=== PATIENT | female | born 1950 | race Caucasian/White ===

== ENCOUNTER 2022-03-20 13:42 | Emergency (ER) | payer MEDICARE, OTHER ==
[~2022-03-20] VITALS: Ht 162.6 cm; Wt 129.3 kg
[2022-03-20] MEDS ORDERED: LISI40TA13 PO (14:04)
[2022-03-20] MEDS ORDERED: LEVO125T PO (14:04)
[2022-03-20] MEDS ORDERED: LACT1CAP61 PO (14:11)
[2022-03-20] MEDS ORDERED: LOTE5DRO3 EACHEYE (14:11)
[2022-03-20] MEDS ORDERED: ASCO100T12 PO ×2 (14:11)
[2022-03-20] MEDS ORDERED: ASPI-618 PO (14:11)
[2022-03-20] MEDS ORDERED: ESOM40CA PO (14:11)
[2022-03-20] MEDS ORDERED: VITA FUSION (14:11)
[2022-03-20] MEDS ORDERED: ROSU20TA2 PO (14:11)
[2022-03-20] MEDS ORDERED: BRIM5DRO2 EACHEYE (14:11)
[2022-03-20] MEDS ORDERED: REFRESH (14:11)
[2022-03-20] MEDS ORDERED: CYAN250014 PO (14:11)
[2022-03-20] MEDS ORDERED: [UNRECOGNIZED DRUG - CODE] PO (14:11)
[2022-03-20] MEDS ORDERED: CELE200C PO (14:11)
[2022-03-20] MEDS ORDERED: [UNRECOGNIZED DRUG - CODE] PO (14:11)
[2022-03-20] MEDS ORDERED: BIOT10004 PO (14:11)
--- NOTE | 2022-03-20 14:12 | NUR ---
PT IS IN ROOM #2B. DR LI EVALUATED THE PT.
[2022-03-20] MEDS ORDERED: IV NORMAL SALINE 1000 ML BAG IV ONE (14:45)
[2022-03-20 15:10] LABS: HEMATOCRIT 38.7 % (31.2-41.9); MEAN CORPUSCULAR HEMOGLOBIN 26.9 uug (24.7-32.8); MEAN CORPUSCULAR VOLUME 82.9 fL (75.5-95.3); PLATELET COUNT (AUTO) 298 K/uL (179-408)
[2022-03-20 15:29] LABS: *BILIRUBIN,URIN NEGATIVE (NEGATIVE); *CLARITY,URINE CLEAR (CLEAR); *COLOR,URINE LIGHT YELLOW (YELLOW); *KETONES,URINE TRACE (NEGATIVE); *UROBILINOGEN,URINE 0.2 E.U./dl (NORMAL); LEUKOCYTE ESTERASE ,URINE NEGATIVE (NEGATIVE); NITRITE, URINE NEGATIVE (NEGATIVE); PH,URINE 5.5 (5.0-8.0); UGLUCOSE NEGATIVE (NEGATIVE)
[2022-03-20 15:31] LABS: *BLOOD, URINE TRACE (NEGATIVE)
[2022-03-20 15:34] LABS: CARBON DIOXIDE 27 mmol/L (21-32); CHLORIDE 105 mmol/L (98-107); CREATININE 0.8 mg/dL (0.6-1.3); GLUCOSE 100 mg/dL (74-106); POTASSIUM 3.7 mmol/L (3.5-5.1); UREA NITROGEN, BLOOD 20 mg/dL (7-18)
[2022-03-20 15:44] LABS: RBC,URINE 0-3 /HPF (0-3); SQUAMOUS EPITHELIAL CELL,UR FEW /HPF (NONE SEEN); WBC,URINE 0-3 /HPF (0-3)
[2022-03-20 15:45] LABS: ALANINE AMINOTRANSFERASE 19 U/L (14-59); ALKALINE PHOSPHATASE 89 U/L (50-136); ASPARTATE AMINOTRANSFERASE 22 U/L (15-37); BACTERIA,URINE NONE SEEN /HPF (NONE SEEN); BILIRUBIN,DIRECT 0.1 mg/dL (0.0-0.2); BILIRUBIN,TOTAL 0.5 mg/dL (0.2-1.0); LIPASE 68 U/L (73-393)
[2022-03-20] MEDS ORDERED: SWABABLE VALVE TRANSFER SET EA MC ONE (15:59)
[2022-03-20] MEDS ORDERED: IV NORMAL SALINE 250 ML IV ONE (15:59)
[2022-03-20] MEDS ORDERED: IOHEXOL 300MG/ML 100 ML INFUS..BTL ONE (15:59)
--- NOTE | 2022-03-20 16:15 | NUR ---
Pt. taken down for abd. ct.
--- NOTE | 2022-03-20 16:34 | NUR ---
Patient back from ct lab at bedside.
[2022-03-20] MEDS ORDERED: AMOX-430 PO (17:44)
--- NOTE | 2022-03-20 17:45 | NUR ---
Hr 78 158/90. saturation 100% on RA. IV line dcd in preparation for dcd.
[2022-03-20] MEDS ORDERED: AMOXICILLIN-CLAVUL 875-125MG TABLET PO ONE (18:00)
[2022-03-20] MEDS ORDERED: AMOXICILLIN-CLAVUL 875-125MG TABLET ONE (18:10)
--- NOTE | 2022-03-20 18:24 | NUR ---
dcd instructions and prescription reviewed with patient. Patient left in no distress ambulatory steady gait.
== END 2022-03-20 18:25 | disposition home or self-care (01) ==
LOC: ER 13:42
DX: K57.93 Diverticulitis of intestine, part unspecified, without perforation or abscess with bleeding (principal); K80.20 Calculus of gallbladder without cholecystitis without obstruction; R91.8 Other nonspecific abnormal finding of lung field; Z88.1 Allergy status to other antibiotic agents; Z91.013 Allergy to seafood; Z98.84 Bariatric surgery status; K64.8 Other hemorrhoids
CPT/HCPCS: 99285; 74177; 96360; 80076; 80048; 81001; 83690; 85025; 84484 ×2; 36415; Q9967; J7040; A4663